=== PATIENT | male | born 1990 | race Caucasian/White ===

== ENCOUNTER 2020-12-07 12:24 | Outpatient (REF) | payer OTHER, SELFPAY ==
--- NOTE | ~2020-12-07 | XR_ITS ---
EXAMINATION: LUMBAR SPINE AND LEFT HIP X-RAY CLINICAL INFORMATION: Lumbar radiculopathy. Left hip pain. COMPARISON: Previous lumbar spine x-ray June 2019 TECHNIQUE: 3 views of the lumbar spine. One view of the pelvis and 2 views of the left hip FINDINGS: Lumbar spine: Bone alignment is normal. No fracture or dislocation is seen. There is degenerative disc disease at L5-S1. There is lower lumbar spine facet arthritis. Left hip: Bone alignment is normal. No fracture or dislocation is seen. There are 2 sclerotic densities, one projecting over the acetabulum and femoral head and one in the intertrochanteric region. The former density is seen on old lumbar spine x-ray June 2019 and is unchanged. These probably represent bone islands. The hip joints are normal. Bones of the pelvis are normal. Soft tissues are normal. XR/XR lumbar spine 2-3V IMPRESSION: Lumbar spine: Degenerative disc disease at L5-S1 and lower lumbar spine facet arthritis. Left hip: Probable bone islands otherwise unremarkable exam exam.
--- NOTE | ~2020-12-07 | XR_ITS ---
EXAMINATION: LUMBAR SPINE AND LEFT HIP X-RAY CLINICAL INFORMATION: Lumbar radiculopathy. Left hip pain. COMPARISON: Previous lumbar spine x-ray June 2019 TECHNIQUE: 3 views of the lumbar spine. One view of the pelvis and 2 views of the left hip FINDINGS: Lumbar spine: Bone alignment is normal. No fracture or dislocation is seen. There is degenerative disc disease at L5-S1. There is lower lumbar spine facet arthritis. Left hip: Bone alignment is normal. No fracture or dislocation is seen. There are 2 sclerotic densities, one projecting over the acetabulum and femoral head and one in the intertrochanteric region. The former density is seen on old lumbar spine x-ray June 2019 and is unchanged. These probably represent bone islands. The hip joints are normal. Bones of the pelvis are normal. Soft tissues are normal. XR/XR hip LT w PEL1V IMPRESSION: Lumbar spine: Degenerative disc disease at L5-S1 and lower lumbar spine facet arthritis. Left hip: Probable bone islands otherwise unremarkable exam exam.
== END 2020-12-07 12:25 | disposition home or self-care (01) ==
LOC: HO.HMGCX 12:24
PROVIDERS: PCP Nurse Practitioner Family; Visit Provider Nurse Practitioner Family
DX: M51.36 Other intervertebral disc degeneration, lumbar region (principal); M25.552 Pain in left hip; M54.32 Sciatica, left side; M54.16 Radiculopathy, lumbar region
CPT/HCPCS: 72100; 73502

== ENCOUNTER 2021-01-04 13:55 | Outpatient (RCR) | payer OTHER, SELFPAY ==
--- NOTE | 2021-01-07 17:21 | MHC.PT.EP ---
[facility] [place] [facility] [place] [facility] [place] Office [address] [phone] F: [phone] F: [phone] F: [phone] F: [phone] Physical Therapy Plan of Care Date of Evaluation: 01/04/21 Date of Surgery: Diagnosis: Sciatica L side. Assessment: Pt is a 30 y/o male referred to PT for eval and treat of LBP with L sciatica resulting in decreased tolerance for lifting objects of weight, squatting activities as well as sitting and standing for duration secondary to (+) Ayleen extension classification examination, decreased trunk ROM and strength, increased LE tissue tension, decreased posture and pain. Pt is deemed an appropriate candidate to receive skilled PT in order to address her physical limitations to improve her functional ability. Frequency and Duration: The patient will be seen 1 x/ wk x 4 wks. Short Term Goals: In 1 week: initiate HEP with evidence of compliance. In 3 weeks: L LE radicular Sx abolished. Usp Goals: In 4 weeks: I with HEP. In 4 weeks: Pt will be able to sit as long as he'd like with managed Sx; initial: < 1 hour. Treatment Plan: Modalities to reduce pain, spasms and effusion. Manual therapy to restore motion and function. Therapeutic exercise to improve strength and flexibility. Neuromuscular re-education for posture and balance. Therapeutic activities to return to functional activities of daily living. Electronically signed by: Bruce Buckner PT. Please sign and return to therapist. Thank you for your referral.
--- NOTE | 2021-02-21 16:15 | MHC.PT.DC ---
[facility] [place] Office [place] Office [place] Office [address] [place] Torres [address] [phone] F: [phone] F: [phone] F: [phone] F: [phone] Physical Therapy Discharge Report Diagnosis: Sciatica L side. Date of Surgery: Date of Evaluation: 01/04/21 Date of Discharge: 02/21/21 Treatments to Date: 1 Cancellations to Date: 0 No Shows to Date: 0 Discharge Status: Visit Non-compliance Discharge Summary: Electronically signed by: Bruce Buckner PT. Please sign and return to therapist. Thank you for your referral.
== END 2021-02-21 16:15 | disposition home or self-care (01) ==
LOC: HO.PTCHIC 13:55
PROVIDERS: PCP Nurse Practitioner Family; Visit Provider Nurse Practitioner Family
DX: M54.32 Sciatica, left side (principal)
CPT/HCPCS: 97110; 97161

== ENCOUNTER → 2022-10-15 13:58 | Outpatient (BNVA) | payer OTHER, SELFPAY | PROVIDERS: PCP Nurse Practitioner Family; Visit Provider Surgery | DX: L72.9 Follicular cyst of the skin and subcutaneous tissue, unspecified (principal) | CPT/HCPCS: 99202 ==

== ENCOUNTER → 2022-11-18 13:54 | Outpatient (BNVA) | payer OTHER, SELFPAY | PROVIDERS: PCP Nurse Practitioner Family; Referring Provider Nurse Practitioner Family; Visit Provider Surgery | DX: L72.9 Follicular cyst of the skin and subcutaneous tissue, unspecified (principal) | CPT/HCPCS: 11402; 99212 ==

== ENCOUNTER → 2022-11-25 10:38 | Outpatient (BNVA) | payer OTHER, SELFPAY | PROVIDERS: PCP Nurse Practitioner Family; Referring Provider Nurse Practitioner Family; Visit Provider Surgery | DX: Z13.89 Encounter for screening for other disorder (principal) ==

== ENCOUNTER 2023-11-23 14:46 | Outpatient (AMB) | payer OTHER, SELFPAY ==
[2023-11-23 15:05] VITALS: BP 128/72; PULSE 66; TEMP 36.6; O2SAT 98; BMI 25.0
--- NOTE | 2023-11-23 15:05 | MHC.OFFWIV ---
Intake Vital Signs 11/23/23 15:05 Height 6 ft Weight 184 lb 2 oz BMI 25.0 BP 128/72 Blood Pressure Location Lt brachial Position Sitting Pulse 66 Pulse Source Pulse Oximeter Temp 97.9 F Temp Source Oral Pulse Oximetry (%) 98 Oxygen Delivery Method Room Air Intake Visit Reasons: EP Lower back pain Intake Note: pt is here for c.o lower back pain ongoing for years, but patient states he was washing dishes and his back went out on him this morning Patient Tobacco Use Status: Never used Tobacco Allergies No Known Allergies Allergy (Verified 11/23/23 15:06) Do you need a note to return to daycare/school/sports/work: Yes HPI HPI Comments History of Present Illness Details Patient presents to the walk in today with complaints of pain across lower back after sneezing this morning Reports history of lower back pain but has been stable, last flare was in 2020, went to PT and has been doing HEP with good effect Today was washing dishes, sneezed and felt sudden pain in the back Denies radiation of the pain down either leg Denies numbness, tingling, weakness of lower extrem Denies red flag symptoms including new loss of bowel, bladder or saddle anesthesia PFSH Surgical History No pertinent past surgical history Family History Father No problems noted. Mother Unknown family medical history Social History (Reviewed 11/18/22 @ 14:34 by Andrew Heck MD, [facility], [facility]) Housing: House Patient Tobacco Use Status: Never used Tobacco e-Cigarette/Vaping Use: Never Used Second Hand Smoke Exposure: No Substance Use Type: Marijuana service: No Current occupational status: employed Current occupation: [employer] Current occupational exposures/hazards: No Cognitive needs: No Hearing needs: No Vision needs: No Review of Systems Const All systems reviewed & are unremarkable except as noted in HPI and below Physical Exam Vital Signs: Last Vital Signs Temp 97.9 F 11/23/23 15:05 Pulse 66 11/23/23 15:05 BP 128/72 11/23/23 15:05 Pulse Ox 98 11/23/23 15:05 Oxygen Delivery Method Room Air 11/23/23 15:05 BMI result Body Mass Index 25.0 General: awake, alert, oriented. Answers questions appropriately. Fully engaged in examination. Skin: warm, dry, intact HEENT: Normocephalic. Hearing intact. Cardiac: External chest normal in appearance. Respiratory: No cough, audible wheezing or stridor. Abdomen: without gross distension. MS: No obvious swelling or deformities. Able to stand on bilateral tiptoes and bilateral heels.? Able to transition from sit to stand unassisted. Ambulates with bilaterally normal heel strike and toe off BLE strength 5/5 tenderness across lumbar muscles nontender over midline lumbar vertebrae nontender over PSIS SLR neg bilaterally unable to tolerate Kash d/t pain in lower back Neurological: Oriented to person, place, time and situation. Thought process intact. No gait abnormalities appreciated. Psychiatric: Appropriate mood and affect. Good judgment and insight. Results Reviewed Results Reviewed: xray LS independently reviewed: no acute fracture. Assessment & Plan Assessment & Plan (1) Lumbar strain: Code(s): S39.012A - Strain of muscle, fascia and tendon of lower back, initial encounter Plan Patient presented to the walk in today with complaints of acute lower back pain after sneezing Xray ordered and reviewed: no acute fracture C/W HEP as tolerated Diclofenac 50mg po bid, do not take with other NSAIDs Cyclobenzaprine 5mg po BID, advised on cautions for use Follow up with pcp as planned in December Return here for any new or worsening symptoms Orders: Orders XR lumbar spine 2-3V Today M54.9 - Dorsalgia, unspecified Medications: New diclofenac potassium do not take with other NSAIDs 50 mg PO BID 20 tabs 0RF cyclobenzaprine 5 mg PO TID PRN 20 tabs 0RF muscle spasm Coding Level of Care Code Est Pt Level 4 (38522) Diagnoses Lumbar strain S39.012A
== END 2023-11-23 15:33 | disposition home or self-care (01) ==
PROVIDERS: PCP Nurse Practitioner Family; Visit Provider Registered Nurse Emergency
DX: S39.012A Strain of muscle, fascia and tendon of lower back, initial encounter (principal)
CPT/HCPCS: 99214

== ENCOUNTER 2023-11-23 15:32 | Outpatient (REF) | payer OTHER, SELFPAY ==
--- NOTE | ~2023-11-23 | XR_ITS ---
EXAMINATION: XR LUMBOSACRAL SPINE CLINICAL INFORMATION: Dorsalgia COMPARISON: Lumbar spine radiograph from 12/07/2020 TECHNIQUE: Three views of the lumbosacral spine. FINDINGS: 5 nonrib-bearing lumbar-type vertebral bodies. No acute visible fracture or dislocation. Multilevel degenerative changes greatest at L5-S1 with disc space narrowing, endplate changes, neuroforaminal narrowing, and facet arthropathy. Vertebral body heights and disc spaces are otherwise maintained. Posterior elements are intact. Paraspinal soft tissues are unremarkable. Visualized bowel gas is unremarkable. XR/XR lumbar spine 2-3V IMPRESSION: 1. No acute visible fracture or dislocation. 2. Multilevel degenerative changes greatest at L5-S1.
== END 2023-11-23 15:33 | disposition home or self-care (01) ==
LOC: HO.HMGCX 15:32
PROVIDERS: PCP Nurse Practitioner Family; Visit Provider Registered Nurse Emergency
DX: M54.9 Dorsalgia, unspecified (principal)
CPT/HCPCS: 72100

== ENCOUNTER 2024-01-06 15:21 | Outpatient (AMB) | payer OTHER, SELFPAY ==
--- NOTE | 2024-01-06 15:25 | MHC.PC.OV ---
Vital Signs 01/06/24 15:27 Height 6 ft Weight 181 lb BMI 24.5 BP 128/78 Blood Pressure Location Rt brachial Position Sitting Pulse 90 Pulse Source Pulse Oximeter Pulse Oximetry (%) 98 Oxygen Delivery Method Room Air Intake Visit Reasons: Lower back pain, ongoing Intake Note: pt is here for chronic back pain, requesting referral pain management (vincent hawkins) Chancellor Required: No Accompanied by: Self / Same As Patient Allergies No Known Allergies Allergy (Verified 01/06/24 15:27) Tobacco use date assessed: 01/06/24 Dental Screening Dental Screen Date: 01/06/24 Did you have a dental visit in the last 12 months?: Yes Did you have a dental problem in the last 6 months where you did not have access to dental care?: No Was dental information given to patient?: Patient has dentist HPI Lower back pain, ongoing HPI Details lower back pain, ongoing, intermittent radiculopathy down left lower extrem. Pt has good and bad days, pt reports his back pain has been better. denies any s/s of cauda equina. I will re-refer pt to PT and go from here. Highly encourgaed he participates, to learn stretches and strengthing to continue at home. Will write him a note to go back to work [employer] Pt reports he will call me with further questions or concerns. [facility] Surgical History No pertinent past surgical history Family History Father No problems noted. Mother Unknown family medical history Social History Housing: House Patient Tobacco Use Status: Never used Tobacco e-Cigarette/Vaping Use: Never Used Second Hand Smoke Exposure: No Substance Use Type: Marijuana service: No Current occupational status: employed Current occupation: [employer] Current occupational exposures/hazards: No Cognitive needs: No Hearing needs: No Vision needs: No Questionnaire PHQ-9 Over the last 2 weeks, how often have you been bothered by any of the following problems? 1. Little interest or pleasure in doing things: not at all 2. Feeling down, depressed, or hopeless: not at all 3. Trouble falling or staying asleep, or sleeping too much: not at all 4. Feeling tired or having little energy: not at all 5. Poor appetite or overeating: not at all 6. Feeling bad about yourself - or that you are a failure or have let yourself or your family down: not at all 7. Trouble concentrating on things, such as reading the newspaper or watching television: not at all 8. Moving or speaking so slowly that other people could have noticed. Or the opposite - being so fidgety or restless that you have been moving around a lot more than usual: not at all 9. Thoughts that you would be better off or of hurting yourself in some way: not at all Total score: 0 Depression Screening Interpretation: Negative Depression Screening Done: Yes 48189 - PHQ-9 Billing: Yes Source: Developed by Drs. Ulises Louis, Maryan Snyder, Micky Mathew and colleagues, with an educational ramu from [employer]. Thrive Questionnaire Date Thrive assessed: 01/06/24 I am a: Patient What is your living situation today?: I have a steady place to live Within the past 12 months, did the food you bought not last and you didn't have the money to get more?: Never true Within the past 12 months, did you worry whether your food would run out before you got money to buy more?: Never true Do you have trouble paying for medicines?: No Do you have trouble getting transportation to medical appointments?: No Do you have trouble paying your heating and electricity bill?: No Do you have trouble taking care of your child, family member or friend?: No Do you have trouble with day-to-day activities such as bathing, preparing meals, shopping, managing finances, etc.?: No Are you currently unemployed and looking for a job?: No Are you interested in more education?: No Please select the resources that you would like help with: None Currently or been in a relationship where the following occur: no concerns reported THRIVE Score: 0 ELVIN-7 AMB Questionnaire ELVIN-7 Date ELVIN - 7 assessed: 01/06/24 Feeling nervous, anxious, or on edge: 0 = Not at all Not being able to stop or control worryin = Not at all Worrying too much about different things: 0 = Not at all Trouble relaxin = Not at all Being so restless that it is hard to sit still: 0 = Not at all Becoming easily annoyed or irritable: 0 = Not at all Feeling afraid as if something awful might happen: 0 = Not at all Total ELVIN-7 score (0-4 normal; 5-9 mild; 10-14 moderate; 15-21 severe): 0 Source: Developed by Drs. Ulises Louis, Maryan Snyder, Micky Mathew and colleagues, with an educational ramu from [employer]. ELVIN-7 Assessment Billing ELVIN-7 Assessment Tool: ELVIN-7 Assessment 06250 Physical exam (Primary Care) Vital Signs: Last Vital Signs Pulse 90 01/06/24 15:27 BP 128/78 01/06/24 15:27 Pulse Ox 98 01/06/24 15:27 Oxygen Delivery Method Room Air 01/06/24 15:27 BMI result Body Mass Index 24.5 Tobacco/Smoking Status: Tobacco use Status Tobacco use date assessed 01/06/24 01/06/24 15:28 Patient Tobacco Use Status Never used Tobacco 01/06/24 15:28 e-Cigarette/Vaping Use Never Used 01/06/24 15:28 PHQ-9: PHQ-9 Score PHQ-9: Total score 0 01/06/24 15:59 Depression Screening Interpretation: Negative Thrive Assessment: Date of Thrive Assessment Date Thrive assessed 01/06/24 01/06/24 15:36 Currently or been in a relationship where the following occur: no concerns reported Resp Effort & Inspection: normal respiratory effort Auscultation: clear to auscultation bilaterally Cardio Rate: regular rate Rhythm: regular rhythm Heart sounds: S1 normal heart sound present, S2 normal heart sound present and no murmurs Back/Spine/Pelvis Other: able to heel and toe walk without pain. No radicular symptoms with pt in supine position performing BLE knee to chest raises and entire lower extrem raises. Neuro Other: + patellar DTRs to BLE Extrem Right lower extremity: no edema Left lower extremity: no edema Psych Appearance: grossly normal Mental Status: mental status grossly normal Speech and movement: Normal speech and movement present Affect: normal affect Attitude: cooperative Thought process: Normal thought process present Thought content: Normal thought content present Insight: Good insight present (Psych) Assessment and Plan Assessment & Plan (1) DDD (degenerative disc disease), lumbar: Code(s): M51.36 - Other intervertebral disc degeneration, lumbar region Plan: light duty only (2) Lumbar radiculitis: Code(s): M54.16 - Radiculopathy, lumbar region Plan: PT order placed, 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
[2024-01-06 15:27] VITALS: BP 128/78; PULSE 90; O2SAT 98; BMI 24.5
== END 2024-01-06 16:37 | disposition home or self-care (01) ==
PROVIDERS: PCP Nurse Practitioner Family; Visit Provider Nurse Practitioner Family
DX: M51.36 Other intervertebral disc degeneration, lumbar region (principal); M54.16 Radiculopathy, lumbar region
CPT/HCPCS: 99213